=== PATIENT | female | born 1960 | race Caucasian/White ===

== ENCOUNTER 2017-05-19 14:29 | Emergency (ER) | payer OTHER ==
[2017-05-19 14:38] VITALS: BP 105/60; PULSE 88; TEMP 99.7; BMI 25.6
[2017-05-19] MEDS ORDERED: ALBUTEROL SO4 2.5/IPRATROPIUM 0.5 INH SOL 3 ML VIAL.NEB. NEB ONE ×2 (15:20→15:22)
--- NOTE | 2017-05-19 16:06 | PDOC ---
History of Present Illness - General Chief Complaint: Cold Symptoms Stated Complaint: COLD SYMPTOMS Time Seen by Provider: 05/19/17 15:10 History Source: Patient Exam Limitations: No Limitations - History of Present Illness Initial Comments: 05/19/17 15:59 Patient is a 56-year-old female, denies any significant medical history currently on no medication. Patient reports cough, cold like symptoms, generalized body aches and fever since yesterday. Patient was treated for upper respiratory infection 2 months ago antibiotics, name unknown states that her cough never fully resolved in 2 days ago developed other symptoms. Patient is active, able to eat and drink . Past Medical History: [Denies]. Allergies: No known allergies Medications: [None] Family History: Non-contributory Social History: Smokes 3-4 cigarettes a day alcohol use, or IVDU Review of Systems GENERAL/CONSTITUTIONAL: [Fever and chills generalized body aches. No weakness. No weight change.] HEAD, EYES, EARS, NOSE AND THROAT: [No change in vision. No ear pain or discharge. No sore throat. ] CARDIOVASCULAR: [No chest pain or shortness of breath.] RESPIRATORY: [Moist productive cough, no wheezing, or hemoptysis.] GASTROINTESTINAL: [No nausea, vomiting, diarrhea or constipation. No rectal bleeding.] GENITOURINARY: [No dysuria, frequency, or change in urination.] MUSCULOSKELETAL: [No joint or muscle swelling or pain. No neck or back pain.] SKIN AND BREASTS: [No rash or easy bruising.] NEUROLOGIC: [No headache, vertigo, loss of consciousness, or loss of sensation.] PSYCHIATRIC: [No depression or anxiety.] ENDOCRINE: [No increased thirst. No abnormal weight change.] HEMATOLOGIC/LYMPHATIC: [No anemia, easy bleeding, or history of blood clots.] ALLERGIC/IMMUNOLOGIC: [No hives or skin allergy. No latex allergy.] Physical Exam: GENERAL: [The patient is awake, alert, and fully oriented, in no acute distress. ] EYES: [Pupils equal, round and reactive to light, extraocular movements intact, sclera anicteric, conjunctiva clear.] ENT: [Ears normal, nares patent, oropharynx clear without exudates. Moist mucous membranes. No uvula deviation] NECK: [Normal range of motion, supple without lymphadenopathy, JVD, or masses.] LUNGS: [Breath sounds equal, rhonchi and expiratory wheezes noted bilaterally no crackles.] HEART: [Regular rate and rhythm, normal S1 and S2 without murmur, rub or gallop. ] ABDOMEN: [Soft, nontender, normoactive bowel sounds. No guarding, no rebound. No masses. No bruising or abrasions] MUSCULOSKELETAL: [Normal range of motion, no edema. No clubbing or cyanosis. No cords, erythema, or tenderness. No CVA Tenderness with fist.] NEUROLOGICAL: [Cranial nerves II through XII grossly intact. Normal speech, normal gait.] SKIN: [Warm, Dry, normal turgor, no rashes or lesions noted.] Past History - Past Medical History Allergies/Adverse Reactions: Allergies Allergy/AdvReac Type Severity Reaction Status Date / Time No Known Allergies Allergy Verified 05/19/17 14:38 Home Medications: Ambulatory Orders Azithromycin [Zithromax 250mg Tablets -] 250 mg PO UTDICT #6 tab 05/19/17 Oseltamivir Phosphate [Tamiflu -] 75 mg PO BID #10 capsule 05/19/17 COPD: No - Suicide/Smoking/Psychosocial Hx Smoking History: Current every day smoker Have you smoked in the past 12 months: Yes Number of Cigarettes Smoked Daily: 5 Information on smoking cessation initiated: No Hx Alcohol Use: No Drug/Substance Use Hx: No Substance Use Type: None *Physical Exam - Vital Signs Last Vital Signs Temp Pulse Resp BP Pulse Ox 99.7 F H 88 20 105/60 95 05/19/17 14:34 05/19/17 14:34 05/19/17 14:34 05/19/17 14:34 05/19/17 14:34 ED Treatment Course - ADDITIONAL ORDERS Additional order review: 05/19/17 15:20 Influenza Types A,B Antigen (CHRISTEN) - Final Nasopharyngeal Swab - Final - Medications Given in the ED: ED Medications Discontinued Medications Generic Name Dose Route Start Last Admin Trade Name Freq PRN Reason Stop Dose Admin Albuterol/Ipratropium 1 amp 05/19/17 15:20 05/19/17 15:24 Duoneb - NEB 05/19/17 15:21 1 amp ONCE ONE Administration Medical Decision Making - Medical Decision Making 05/19/17 16:06 A/P: Patient here for evaluation of fever, cough, generalized body aches pain which started 2 days ago. Rapid influenza sent, influenza A positive patient with rhonchi and expiratory wheezes bilaterally Combivent treatment given with good result. We'll DC patient on Tamiflu and azithromycin. I discussed the physical exam findings, ancillary test results and final diagnoses with the patient. I answered all of the patient's questions. The patient was satisfied with the care received and felt comfortable with the discharge plan and treatment plan. The patient will call to arrange follow-up and will return to the Emergency Department with any new, persistent or worsening symptoms. *DC/Admit/Observation/Transfer Diagnosis at time of Disposition: Influenza A Upper respiratory infection Qualifiers: URI type: unspecified URI Qualified Code(s): J06.9 - Acute upper respiratory infection, unspecified - Discharge Dispostion Disposition: HOME Condition at time of disposition: Stable Admit: No - Prescriptions Prescriptions: Azithromycin [Zithromax 250mg Tablets -] 250 mg PO UTDICT #6 tab Oseltamivir Phosphate [Tamiflu -] 75 mg PO BID #10 capsule - Referrals Referrals: STAFF,NOT ON [Primary Care Provider] - - Patient Instructions Additional Instructions: You have been diagnosed with influenza a. Please take the medication as directed. You are contagious. Please attempt to avoid contact of multiple individuals as this will cause the infection to spread. Return to emergency room if shortness of breath, wheezing, fever greater than 101, chest pain, or fainting occurs. - Post Discharge Activity Forms/Work/School Notes: Back to Work
== END 2017-05-19 16:11 | disposition home or self-care (01) ==
LOC: JERFT 14:29
PROC: 3E0F7GC Introduction of Other Therapeutic Substance into Respiratory Tract, Via Natural or Artificial Opening (ICD-10-PCS; principal; 2017-05-19)
DX: J09.X2 Influenza due to identified novel influenza A virus with other respiratory manifestations (principal)
CPT/HCPCS: 87804; 99281-25

== ENCOUNTER 2019-02-24 17:32 | Emergency (ER) | payer OTHER ==
[2019-02-24 17:42] VITALS: BP 179/97; PULSE 93; TEMP 98.4; BMI 25.6
[2019-02-24] MEDS ORDERED: predniSONE 20 MG TABLET (UD) PO ONE (18:29)
[2019-02-24] MEDS ORDERED: traMADol HCL 50 MG TABLET PO ONE (18:29)
[2019-02-24] MEDS ORDERED: traMADol HCL 50 MG TABLET ONE (18:33)
[2019-02-24] MEDS ORDERED: predniSONE 20 MG TABLET (UD) ONE (18:34)
--- NOTE | 2019-02-24 18:36 | PDOC ---
History of Present Illness - General Chief Complaint: Pain Stated Complaint: BACK PAIN Time Seen by Provider: 02/24/19 18:20 History Source: Patient Exam Limitations: No Limitations - History of Present Illness Initial Comments: 02/24/19 18:32 58 year old female with medical history of gastritis and surgical history of cholecystectomy and , presents with reports of rash since Sunday. Patient reports pain to left side and back starting and now with rash appearing to left breast Sunday. States used diaper rash cream on area. DEnies any respiratory involvement or history or this rash. Timing/Duration: reports: week Severity: Yes: moderate Location: reports: torso (left breast) Respiratory Risk Factors: reports: no cause identified Modifying Factors: improves with: other Associated Symptoms: reports: blisters Past History - Travel Traveled outside of the country in the last 30 days: No Close contact w/someone who was outside of country & ill: No - Past Medical History Allergies/Adverse Reactions: Allergies Allergy/AdvReac Type Severity Reaction Status Date / Time No Known Allergies Allergy Verified 05/19/17 14:38 Home Medications: Ambulatory Orders Azithromycin [Zithromax 250mg Tablets -] 250 mg PO UTDICT #6 tab 05/19/17 Oseltamivir Phosphate [Tamiflu -] 75 mg PO BID #10 capsule 05/19/17 Methylprednisolone [Medrol Dose Mik] 4 mg PO ASDIR #21 tablet 02/24/19 Tramadol HCl 50 mg PO TID #7 tablet MDD 3 02/24/19 Valacyclovir HCl [Valtrex] 1,000 mg PO TID #7 tablet 02/24/19 COPD: No Other medical history: sciatica - Surgical History Gastric Stapling: No - Immunization History Immunization Up to Date: No - Psycho Social/Smoking Cessation Hx Smoking History: Current some day smoker Have you smoked in the past 12 months: Yes Number of Cigarettes Smoked Daily: 3 Information on smoking cessation initiated: No Hx Alcohol Use: No Drug/Substance Use Hx: No Substance Use Type: None Review of Systems - Review of Systems Able to Perform ROS?: Yes Is the patient limited Bangladeshi proficient: No Constitutional: No: Chills, Diaphoresis, Fever HEENTM: No: Nose Congestion, Hearing Loss, Throat Pain, Throat Swelling Respiratory: No: Cough, Orthopnea, Shortness of Breath, SOB at Rest, Productive cough Cardiac (ROS): No: Chest Pain, Edema, Irregular Heart Rate, Lightheadedness, Palpitations ABD/GI: No: Poor Appetite, Vomiting, Indigestion : No: Burning, Hematuria Musculoskeletal: No: Back Pain, Gout, Joint Pain, Muscle Weakness, Neck Pain Integumentary: Yes: Lesions, Rash Neurological: No: Headache, Numbness, Paresthesia, Seizure, Weakness Psychiatric: No: Frequent Crying, Stressors Endocrine: No: Increased Hunger, Increased Urine Hematologic/Lymphatic: No: Anemia *Physical Exam - Vital Signs Last Vital Signs Temp Pulse Resp BP Pulse Ox 98.4 F 93 H 179/97 H 97 02/24/19 17:38 02/24/19 17:38 02/24/19 17:38 02/24/19 17:38 - Physical Exam General Appearance: Yes: Nourished, Appropriately Dressed HEENT: positive: AYAD, TMs Normal, Pharynx Normal Neck: positive: Supple. negative: Lymphadenopathy (R), Lymphadenopathy (L) Respiratory/Chest: positive: Lungs Clear, Normal Breath Sounds Cardiovascular: positive: Regular Rhythm, Regular Rate Extremity: positive: Normal Capillary Refill Integumentary: positive: Hives, Rash, Other (blistering rash to left breast extending around to left side) Neurologic: positive: Fully Oriented, Alert Medical Decision Making - Medical Decision Making 02/24/19 18:36 58 year old female with medical history of gastritis and surgical history of cholecystectomy and , presents with reports of rash since Sunday. Patient reports pain to left side and back starting and now with rash appearing to left breast Sunday. #shingles -prednisone and tramadol given here -d/c home with rx tramadol, pred pack and valcyclovir Discharge - Discharge Information Problems reviewed: Yes Clinical Impression/Diagnosis: Shingles Qualifiers: Herpes zoster complications: unspecified herpes zoster complication Qualified Code(s): B02.8 - Zoster with other complications Condition: Stable Disposition: HOME - Admission No - Additional Discharge Information Prescriptions: Methylprednisolone [Medrol Dose Mik] 4 mg PO ASDIR #21 tablet Tramadol HCl 50 mg PO TID #7 tablet MDD 3 Valacyclovir HCl [Valtrex] 1,000 mg PO TID #7 tablet - Follow up/Referral - Patient Discharge Instructions Patient Printed Discharge Instructions: DI for Shingles, DI for Prescription Opioid Use Additional Instructions: - Mantngase alejado de personas mayores, mujeres embarazadas y sudhir hijos. Esta infeccin es contagiosa. Regrese a la emergencia por empeoramiento de los sntomas. Print Language: TRINIDADIAN - Post Discharge Activity Work/Back to School Note: Back to Work
== END 2019-02-24 18:52 | disposition home or self-care (01) ==
LOC: JERFT 17:32
DX: B02.8 Zoster with other complications (principal); Z87.19 Personal history of other diseases of the digestive system; Z90.49 Acquired absence of other specified parts of digestive tract; Z86.69 Personal history of other diseases of the nervous system and sense organs
CPT/HCPCS: 99281-25

== ENCOUNTER 2019-02-26 12:22 | Emergency (ER) | payer OTHER ==
[2019-02-26 12:28] VITALS: BP 113/65; PULSE 75; TEMP 98.3; BMI 25.6
--- NOTE | 2019-02-26 13:00 | PDOC ---
History of Present Illness - General Chief Complaint: Rash Stated Complaint: SHINGLES 2ND VISIT Time Seen by Provider: 02/26/19 12:36 - History of Present Illness Initial Comments: 02/26/19 12:59 58-year-old female under treatment for shingles at this time presents for evaluation of pain management. She was given a prescription for Medrol Dosepak amoxicillin and acyclovir. She finished the tramadol continues to have pain. Past History - Past Medical History Allergies/Adverse Reactions: Allergies Allergy/AdvReac Type Severity Reaction Status Date / Time No Known Allergies Allergy Verified 02/26/19 12:29 Home Medications: Ambulatory Orders Azithromycin [Zithromax 250mg Tablets -] 250 mg PO UTDICT #6 tab 05/19/17 Oseltamivir Phosphate [Tamiflu -] 75 mg PO BID #10 capsule 05/19/17 Methylprednisolone [Medrol Dose Mik] 4 mg PO ASDIR #21 tablet 02/24/19 Tramadol HCl 50 mg PO TID #7 tablet MDD 3 02/24/19 Valacyclovir HCl [Valtrex] 1,000 mg PO TID #7 tablet 02/24/19 Oxycodone HCl/Acetaminophen [Percocet 5-325 mg Tablet] 1 - 2 tab PO Q6H #20 tab MDD 8 02/26/19 COPD: No GI Disorders: Yes - Surgical History Gastric Stapling: No - Immunization History Immunization Up to Date: No - Psycho Social/Smoking Cessation Hx Smoking History: Current every day smoker Have you smoked in the past 12 months: Yes Number of Cigarettes Smoked Daily: 3 Information on smoking cessation initiated: Yes Hx Alcohol Use: No Drug/Substance Use Hx: No Substance Use Type: None Review of Systems - Review of Systems Integumentary: Yes: See HPI, Rash *Physical Exam - Vital Signs Last Vital Signs Temp Pulse Resp BP Pulse Ox 98.3 F 75 18 113/65 99 02/26/19 12:26 02/26/19 12:26 02/26/19 12:26 02/26/19 12:26 02/26/19 12:26 - Physical Exam Comments: 02/26/19 12:59 There is a large vesicular rash extending from the lumbar spine into the chest. No open vesicles appreciated ED Treatment Course - Medications Given in the ED: ED Medications Discontinued Medications Generic Name Dose Route Start Last Admin Trade Name Freq PRN Reason Stop Dose Admin Oxycodone/Acetaminophen 2 combo 02/26/19 12:45 02/26/19 12:57 Percocet 5/325 - PO 02/26/19 12:46 2 combo ONCE ONE Administration Medical Decision Making - Medical Decision Making 02/26/19 12:59 Patient is obviously uncomfortable. I will treat her with Percocet in the emergency room prescription for 20 Percocet sent. She has finished the tramadol. Discharge - Discharge Information Problems reviewed: Yes Clinical Impression/Diagnosis: Shingles Condition: Stable Disposition: HOME - Admission No - Additional Discharge Information Prescriptions: Oxycodone HCl/Acetaminophen [Percocet 5-325 mg Tablet] 1 - 2 tab PO Q6H #20 tab MDD 8 Prescription Drug Monitoring Program (I-STOP) results: I-STOP not reviewed - Follow up/Referral - Patient Discharge Instructions Additional Instructions: Please take the pain medication as directed and return to the emergency room for worsening symptoms. Follow-up with your primary care physician in 1 to 2 days without fail. - Post Discharge Activity
== END 2019-02-26 14:09 | disposition home or self-care (01) ==
LOC: JERFT 12:22
DX: B02.9 Zoster without complications (principal); F17.210 Nicotine dependence, cigarettes, uncomplicated
CPT/HCPCS: 99281-25

== ENCOUNTER 2019-03-11 16:21 | Emergency (ER) | payer OTHER ==
[2019-03-11 16:31] VITALS: BP 122/74; PULSE 65; TEMP 98.7; BMI 43.9
--- NOTE | 2019-03-11 16:48 | PDOC ---
History of Present Illness - General Chief Complaint: Pain Stated Complaint: SENT BY PCP/SUSAN SHINGLES Time Seen by Provider: 03/11/19 16:33 - History of Present Illness Initial Comments: 03/11/19 16:47 58-year-old female presents for evaluation of left-sided flank pain. She was seen in the past because of intractable pain from shingles rash she was given narcotic pain medication and she never followed up with her primary care physician she is seeking additional pain medication today. Past History - Past Medical History Allergies/Adverse Reactions: Allergies Allergy/AdvReac Type Severity Reaction Status Date / Time No Known Allergies Allergy Verified 03/11/19 16:31 Home Medications: Ambulatory Orders Azithromycin [Zithromax 250mg Tablets -] 250 mg PO UTDICT #6 tab 05/19/17 Oseltamivir Phosphate [Tamiflu -] 75 mg PO BID #10 capsule 05/19/17 Methylprednisolone [Medrol Dose Mik] 4 mg PO ASDIR #21 tablet 02/24/19 Tramadol HCl 50 mg PO TID #7 tablet MDD 3 02/24/19 Valacyclovir HCl [Valtrex] 1,000 mg PO TID #7 tablet 02/24/19 Oxycodone HCl/Acetaminophen [Percocet 5-325 mg Tablet] 1 - 2 tab PO Q6H #20 tab MDD 8 02/26/19 COPD: No GI Disorders: Yes - Surgical History Gastric Stapling: No - Immunization History Immunization Up to Date: No - Psycho Social/Smoking Cessation Hx Smoking History: Never smoked Have you smoked in the past 12 months: Yes Number of Cigarettes Smoked Daily: 3 Hx Alcohol Use: No Drug/Substance Use Hx: No Substance Use Type: None Review of Systems - Review of Systems Integumentary: Yes: Rash *Physical Exam - Vital Signs Last Vital Signs Temp Pulse Resp BP Pulse Ox 98.7 F 65 18 122/74 100 03/11/19 16:27 03/11/19 16:27 03/11/19 16:27 03/11/19 16:27 03/11/19 16:27 - Physical Exam Comments: 03/11/19 16:47 There is a resolving rash on the left flank wrapping around not crossing midline no open vesicles mild eschar around the areas of the rash Medical Decision Making - Medical Decision Making 03/11/19 16:47 Discussed use of narcotic pain medication with the patient I told her I would not refilling her pain medication she can have to Percocet in the emergency room and follow-up with her primary care physician she is in agreement with the plan Discharge - Discharge Information Problems reviewed: Yes Clinical Impression/Diagnosis: Shingles Condition: Stable Disposition: HOME - Admission No - Follow up/Referral - Patient Discharge Instructions Additional Instructions: Follow-up with your primary care physician today or tomorrow for further pain management. Return to the emergency room for worsening symptoms. - Post Discharge Activity
== END 2019-03-11 16:56 | disposition home or self-care (01) ==
LOC: JERFT 16:21
DX: B02.9 Zoster without complications (principal)
CPT/HCPCS: 99281-25

== ENCOUNTER 2021-02-01 04:36 | Day surgery (SDC) | payer OTHER ==
[2021-01-31 15:18] VITALS: BMI 27.4
[2021-02-01] MEDS ORDERED: TRIAMCINOLONE ACET 40MG/1ML VIAL ONE (08:51)
[2021-02-01] MEDS ORDERED: IOHEXOL 180 MG/1 ML ML IJ ONE (09:00)
[2021-02-01] MEDS ORDERED: BUPIVACAINE HCL/PF 0.25% (2.5MG/ML) 10 ML VIAL IJ ONE (09:00)
[2021-02-01] MEDS ORDERED: TRIAMCINOLONE ACETONIDE 40 MG/ML 10 ML VIAL IJ ONE ×2 (09:00)
[2021-02-01] MEDS ORDERED: LIDOCAINE 1% P/F 10 MG/ML VIAL INF ONE (09:00)
[2021-02-01 09:54] VITALS: TEMP 97.8
[2021-02-01 10:53] VITALS: BP 139/68; PULSE 60
== END 2021-02-01 10:35 | disposition home or self-care (01) ==
LOC: JASU-SURG 04:36
PROVIDERS: ATTEND Pain Medicine Pain Medicine
PROC: 3E0T3BZ Introduction of Anesthetic Agent into Peripheral Nerves and Plexi, Percutaneous Approach (ICD-10-PCS; 2021-02-01)
PROC: BR15YZZ Fluoroscopy of Thoracic Facet Joint(s) using Other Contrast (ICD-10-PCS; 2021-02-01)
PROC: 3E0T33Z Introduction of Anti-inflammatory into Peripheral Nerves and Plexi, Percutaneous Approach (ICD-10-PCS; principal; 2021-02-01 08:15)
DX: B02.29 Other postherpetic nervous system involvement (principal); M79.2 Neuralgia and neuritis, unspecified
CPT/HCPCS: 76000-TC-FY

== ENCOUNTER 2021-03-11 04:30 | Day surgery (SDC) | payer OTHER ==
[2021-03-11] MEDS ORDERED: LIDOCAINE HCL/PF 1% SDV 5ML VIAL ONE (07:16)
[2021-03-11] MEDS ORDERED: BUPIVACAINE HCL/PF 0.5% (5MG/ML) 10 ML VIAL ONE (07:16)
[2021-03-11] MEDS ORDERED: BUPIVACAINE HCL/PF 0.25% (2.5MG/ML) 10 ML VIAL ONE (07:16)
[2021-03-11] MEDS ORDERED: DEXAMETHASONE SOD PHOSPHATE 10 MG/1 ML VIAL ONE (07:16)
[2021-03-11] MEDS ORDERED: BUPIVACAINE HCL/PF 0.75% 10 ML VIAL ONE (07:16)
[2021-03-11] MEDS ORDERED: LIDOCAINE HCL/PF 2% SDV 5ML VIAL ONE (07:28)
[2021-03-11] MEDS ORDERED: SODIUM CHLORIDE 0.9% P/F 10 ML VIAL IJ ONE (07:28)
[2021-03-11] MEDS ORDERED: IOHEXOL 180 MG/1 ML ML IJ ONE (09:48)
[2021-03-11] MEDS ORDERED: DEXAMETHASONE SOD PHOSPHATE 10 MG/1 ML VIAL IVPUSH ONE (09:48)
[2021-03-11] MEDS ORDERED: LIDOCAINE HCL 1%, 10 MG/ML (50 mL VIAL) INF ONE (09:49)
[2021-03-11 17:03] VITALS: BP 140/80; PULSE 68; TEMP 97
== END 2021-03-11 11:45 | disposition home or self-care (01) ==
LOC: JASU-SURG 04:30
PROVIDERS: ATTEND Pain Medicine Pain Medicine
PROC: B01BYZZ Fluoroscopy of Spinal Cord using Other Contrast (ICD-10-PCS; 2021-03-11)
PROC: 3E0R33Z Introduction of Anti-inflammatory into Spinal Canal, Percutaneous Approach (ICD-10-PCS; principal; 2021-03-11 09:15)
DX: M54.14 Radiculopathy, thoracic region (principal)
CPT/HCPCS: 76000-TC-FY; J1100

== ENCOUNTER 2021-09-06 04:36 | Day surgery (SDC) | payer OTHER ==
[2021-09-05 12:25] VITALS: BMI 27.4
[~2021-09-06 04:36] MED LIST: LIDOCAINE HCL/PF 2% SDV 5ML VIAL INF ONE
[2021-09-06] MEDS ORDERED: LIDOCAINE HCL/PF 1% SDV 5ML VIAL ONE (07:34)
[2021-09-06] MEDS ORDERED: LIDOCAINE HCL/PF 2% SDV 5ML VIAL ONE ×2 (07:41→14:53)
[2021-09-06] MEDS ORDERED: MIDAZOLAM HCL 2 MG/2 ML SINGLE DOSE VIAL ONE (14:41)
[2021-09-06] MEDS ORDERED: ceFAZolin SODIUM 1 GM VIAL IVPB ONE (14:49)
[2021-09-06] MEDS ORDERED: LIDOCAINE HCL 1% PRESERVATIVE FREE - 30ML VIAL IJ ONE ×2 (14:51)
[2021-09-06] MEDS ORDERED: LIDOCAINE HCL/PF 2% SDV 5ML VIAL INF ONE (14:55)
[2021-09-06 17:09] VITALS: PULSE 67
[2021-09-06 17:58] VITALS: BP 122/55; TEMP 97.3
== END 2021-09-06 17:55 | disposition home or self-care (01) ==
LOC: JASU-SURG 04:36
PROVIDERS: ATTEND Pain Medicine Pain Medicine
PROC: 00HU3MZ Insertion of Neurostimulator Lead into Spinal Canal, Percutaneous Approach (ICD-10-PCS; principal; 2021-09-06 15:00)
DX: G89.4 Chronic pain syndrome (principal); B02.29 Other postherpetic nervous system involvement
CPT/HCPCS: 63650; C1897; 76000-TC-FY